=== PATIENT | male | born 1950 ===

== ENCOUNTER → 2019-09-04 11:28 | Outpatient (CLI) | payer MEDICARE ==
[2019-09-04 11:53] LABS: C-REACTIVE PROTEIN 1.9 mg/dL (0.0-0.9); CREATININE - SERUM 1.1 mg/dL (0.6-1.3); VANCOMYCIN - TROUGH 16.2 ug/mL (10.0-20.0)
== END | disposition home or self-care (01) ==
LOC: D.LABREF 11:28
PROVIDERS: ATTEND Internal Medicine Cardiovascular Disease
DX: M86.171 Other acute osteomyelitis, right ankle and foot (principal); B95.62 Methicillin resistant Staphylococcus aureus infection as the cause of diseases classified elsewhere

== ENCOUNTER → 2019-10-20 16:08 | Outpatient (CLI) | payer MEDICARE ==
[2019-10-20 17:38] LABS: C-REACTIVE PROTEIN 0.6 mg/dL (0.0-0.9); CREATININE - SERUM 1.4 mg/dL (0.6-1.3); VANCOMYCIN - TROUGH 18.7 ug/mL (10.0-20.0)
== END | disposition home or self-care (01) ==
LOC: D.LABREF 16:08
PROVIDERS: ATTEND Internal Medicine Cardiovascular Disease
DX: M86.9 Osteomyelitis, unspecified (principal); B95.62 Methicillin resistant Staphylococcus aureus infection as the cause of diseases classified elsewhere